=== PATIENT | female | born 1930 | race Caucasian/White ===

== ENCOUNTER 2020-02-20 08:14 | Emergency (ER) | payer MEDICARE, MEDICAID, SELFPAY ==
[~2020-02-20] VITALS: Ht 152.4 cm; Wt 55.3 kg
[2020-02-20 08:30] VITALS: BP_SYST 115
--- NOTE | 2020-02-20 08:30 | NUR ---
Patient to ER bed 7 to gown for evaluation. Side rails up.
--- NOTE | 2020-02-20 08:35 | NUR ---
Patient BIB BLS C/O Vaginal bleeding. Patient A&OX1, afebrile, skin pink & warm, armenian speakingdenies pain, bed bound, denies N/V/D. Patient sent by staff from [facility] for vaginal bleeding noted this morning at 0500, pt also Covid positive 02/11/20. Upon assessment PT noted to have brown discoloration in urine stained diaper. Patient responding to questions in armenian.
--- NOTE | 2020-02-20 08:42 | NUR ---
JULIAN DOMINIQUE at bedside examining patient.
[2020-02-20] MEDS ORDERED: NACL 0.9% 1,000 ML IV ONE (09:15)
[2020-02-20 09:43] LABS: BILIRUBIN,URINE 1+ (NEGATIVE); BLOOD, URINE 3+ (NEGATIVE); CLARITY/URINE CLEAR (CLEAR); COLOR,URINE YELLOW (YELLOW); GLUCOSE,URINE NEGATIVE (NEGATIVE); KETONES,URINE TRACE (NEGATIVE); LEUKOCYTE ESTERASE ,URINE 2+ (NEGATIVE); NITRITE, URINE POSITIVE (NEGATIVE); PH,URINE 8.5 (5.0-8.0); PROTEIN URINE 3+ (NEGATIVE)
[2020-02-20 09:47] LABS: BASOPHILS # (AUTO) 0.1 K/uL (0.0-0.2); BASOPHILS % (AUTO) 1.3 % (0.0-2.0); EOSINOPHILS # (AUTO) 0.3 K/uL (0.0-0.4); EOSINOPHILS % (AUTO) 5.2 % (0.0-4.0); HEMATOCRIT 38.5 % (36-48); HEMOGLOBIN 12.4 g/dL (12.0-16.0); LYMPHOCYTES # (AUTO) 1.3 K/uL (1.0-5.5); LYMPHOCYTES % (AUTO) 24.3 % (20.5-51.5); MEAN CORPUSCULAR HEMOGLOBIN 27 pg (27-31); MEAN CORPUSCULAR HGB CONC 32 % (32-36); MEAN CORPUSCULAR VOLUME 84 fL (79.0-98.0); MONOCYTES # (AUTO) 0.5 K/uL (0.0-1.0); MONOCYTES % (AUTO) 8.6 % (1.7-9.3); NEUTROPHILS # (AUTO) 3.3 K/uL (1.8-7.7); NEUTROPHILS % (AUTO) 60.6 % (40.0-70.0); PLATELET COUNT (AUTO) 315 K/uL (130-430); RED BLOOD CELL COUNT(AUTO) 4.57 MIL/uL (4.2-6.2); RED CELL DISTRIBUTION WIDTH 14.7 % (9.0-15.0); WHITE BLOOD COUNT (AUTO) 5.5 K/uL (4.8-10.8)
[2020-02-20 09:52] LABS: BACTERIA,URINE MODERATE /HPF (None Seen); RBC,URINE >100 /HPF (0-3); WBC,URINE >100 /HPF (0-3)
[2020-02-20 09:55] LABS: ANION GAP 10 (5-15); CALCIUM 8.9 mg/dL (8.4-11.0); CHLORIDE 109 mmol/L (98-107); CREATININE 0.76 mg/dL (0.55-1.30); GLUCOSE 116 mg/dL (70-99); POTASSIUM 3.6 mmol/L (3.5-5.1); SODIUM SERUM 145 mmol/L (136-145); UREA NITROGEN, BLOOD 22 mg/dL (8-21)
--- NOTE | 2020-02-20 09:55 | NUR ---
Patient given ensure from dietary
[2020-02-20 10:00] LABS: ALANINE AMINOTRANSFERASE 24 U/L (12-78); ALBUMIN 3.3 g/dL (3.4-4.8); ASPARTATE AMINOTRANSFERASE 21 U/L (10-37); TOTAL BILIRUBIN 0.6 mg/dL (0.0-1.0)
[2020-02-20] MEDS ORDERED: cefTRIAXone 1 GM IVPB PREMIX 50 ML IV ONE (10:00)
[2020-02-20 10:24] VITALS: BP_SYST 153
--- NOTE | 2020-02-20 11:00 | NUR ---
Patient to be transferred to [facility] . Is being DISCHARGE TO [facility] . Receiving facility has accepting physician and available space. Patient belongings will be sent with patient. Copy of DISCHARGE SUMMARY & Physicians Orders to be sent with patient. Report called to at receiving facility, [facility]. [][facility] has been called for transfer. ETA is 20 MIN[].
--- NOTE | 2020-02-20 11:28 | NUR ---
Patient given written and verbal discharge instructions and verbalizes understanding. ER MD discussed with patient the results and treatment provided. Patient in stable condition. ID arm band removed. IV catheter removed intact and dressing applied, no active bleeding. Rx of macrobidgiven. Patient educated on pain management and to follow up with PMD. Pain Scale . Opportunity for questions provided and answered. Medication side effect fact sheet provided.
== END 2020-02-20 11:29 | disposition home or self-care (01) ==
LOC: EEVIPCON 08:14 → SED 08:14
DX: N39.0 Urinary tract infection, site not specified (principal); Z20.828 Contact with and (suspected) exposure to other viral communicable diseases; I10 Essential (primary) hypertension; E03.9 Hypothyroidism, unspecified
CPT/HCPCS: 36415; 80053; 81000; 83605; 85025; 87040; 87086; 96365; 99284; J0696; J7030

== ENCOUNTER 2020-02-28 22:17 | Inpatient (IN) | payer OTHER, MEDICAID, SELFPAY ==
[~2020-02-28] VITALS: Ht 162.6 cm; Wt 55.8 kg
[2020-02-28 22:20] VITALS: BP_SYST 143
[2020-02-28] MEDS ORDERED: NACL 0.9% 1,000 ML IV ONE (23:52)
[2020-02-29 00:29] LABS: BASOPHILS # (AUTO) 0.1 K/uL (0.0-0.2); BASOPHILS % (AUTO) 0.7 % (0.0-2.0); EOSINOPHILS # (AUTO) 0.2 K/uL (0.0-0.4); EOSINOPHILS % (AUTO) 1.8 % (0.0-4.0); HEMATOCRIT 42.2 % (36-48); HEMOGLOBIN 13.3 g/dL (12.0-16.0); LYMPHOCYTES # (AUTO) 1.9 K/uL (1.0-5.5); LYMPHOCYTES % (AUTO) 17.1 % (20.5-51.5); MEAN CORPUSCULAR HEMOGLOBIN 27 pg (27-31); MEAN CORPUSCULAR HGB CONC 32 % (32-36); MEAN CORPUSCULAR VOLUME 86 fL (79.0-98.0); MONOCYTES # (AUTO) 1.2 K/uL (0.0-1.0); MONOCYTES % (AUTO) 10.8 % (1.7-9.3); NEUTROPHILS # (AUTO) 7.6 K/uL (1.8-7.7); NEUTROPHILS % (AUTO) 69.6 % (40.0-70.0); PLATELET COUNT (AUTO) 218 K/uL (130-430); RED BLOOD CELL COUNT(AUTO) 4.92 MIL/uL (4.2-6.2); RED CELL DISTRIBUTION WIDTH 15.2 % (9.0-15.0); WHITE BLOOD COUNT (AUTO) 10.9 K/uL (4.8-10.8)
[2020-02-29 00:31] LABS: ANION GAP 14 (5-15); CALCIUM 9.4 mg/dL (8.4-11.0); CREATININE 1.07 mg/dL (0.55-1.30); GLUCOSE 146 mg/dL (70-99); POTASSIUM 3.3 mmol/L (3.5-5.1); UREA NITROGEN, BLOOD 38 mg/dL (8-21)
[2020-02-29 00:33] LABS: INR 1.1 (0.8-1.2)
[2020-02-29 00:37] LABS: ALANINE AMINOTRANSFERASE 37 U/L (12-78); ALBUMIN 3.2 g/dL (3.4-4.8); ASPARTATE AMINOTRANSFERASE 25 U/L (10-37); TOTAL BILIRUBIN 0.4 mg/dL (0.0-1.0)
[2020-02-29 00:39] LABS: CHLORIDE 120 mmol/L (98-107); SODIUM SERUM 160 mmol/L (136-145)
[2020-02-29] MEDS ORDERED: NS 500 ML IV ONE (00:45)
[2020-02-29 01:01] LABS: BILIRUBIN,URINE 1+ (NEGATIVE); BLOOD, URINE 1+ (NEGATIVE); CLARITY/URINE CLEAR (CLEAR); COLOR,URINE YELLOW (YELLOW); GLUCOSE,URINE NEGATIVE (NEGATIVE); KETONES,URINE TRACE (NEGATIVE); LEUKOCYTE ESTERASE ,URINE TRACE (NEGATIVE); NITRITE, URINE NEGATIVE (NEGATIVE); PH,URINE 5.5 (5.0-8.0); PROTEIN URINE TRACE (NEGATIVE)
[2020-02-29 01:12] LABS: BACTERIA,URINE MODERATE /HPF (None Seen)
[2020-02-29] MEDS ORDERED: ASPI-1155 PO (02:35)
[2020-02-29] MEDS ORDERED: METO25TA6 PO (02:35)
[2020-02-29] MEDS ORDERED: ACET-2165 PO (02:35)
[2020-02-29] MEDS ORDERED: ACET-73 PO (02:35)
[2020-02-29] MEDS ORDERED: CALC-823 PO (02:35)
[2020-02-29] MEDS ORDERED: ASCO500T20 PO (02:35)
[2020-02-29] MEDS ORDERED: DOCU-144 PO (02:35)
[2020-02-29] MEDS ORDERED: ALEN10TA7 PO (02:35)
[2020-02-29] MEDS ORDERED: DONE10TA44 PO (02:35)
[2020-02-29] MEDS ORDERED: LEVO150T PO (02:39)
[2020-02-29] MEDS ORDERED: CARB-61 PO (02:39)
[2020-02-29] MEDS ORDERED: MULT-1117 PO (02:39)
[2020-02-29] MEDS ORDERED: CYAN250014 PO (02:39)
[2020-02-29] MEDS ORDERED: SENN8.6T19 PO (02:39)
[2020-02-29] MEDS ORDERED: MEMA10TA PO (02:39)
[2020-02-29] MEDS ORDERED: PRAV40TA PO (02:39)
[2020-02-29 03:43] VITALS: BP_SYST 124
[2020-02-29 04:05] VITALS: BP_SYST 124
[2020-02-29] MEDS ORDERED: POTASSIUM CHLORIDE 20 MEQ in NS 250 ML IV ONE (06:00)
[2020-02-29] MEDS ORDERED: DILTIAZEM HCL 25 MG/5 ML VIAL IVP ONE (06:00)
[2020-02-29] MEDS ORDERED: KCL 20 mEq in 100 mL (PREMIX) 100 ML IV ONE (06:09)
[2020-02-29] MEDS: D5W 1,000 ML IV SCH ×2 (06:14→15:15)
[2020-02-29] MEDS: LEVOTHYROXINE SODIUM 0.15 MG TABLET PO SCH (06:15)
[2020-02-29] MEDS ORDERED: cefTRIAXone 1 GM IVPB PREMIX 50 ML IV ONE (06:38)
[2020-02-29] MEDS: cefTRIAXone 1 GM IVPB PREMIX 50 ML IV SCH (07:02)
[2020-02-29] MEDS: AZITHROMYCIN 500 MG in NS 250 ML IV SCH (08:00)
[2020-02-29] MEDS: CARBIDOPA/LEVODOPA 25/100 MG TABLET PO SCH ×2 (08:43→22:18)
[2020-02-29] MEDS: MEMANTINE HCL 5 MG TABLET PO SCH ×2 (08:43→22:18)
[2020-02-29] MEDS: METOPROLOL TARTRATE 25 MG TABLET PO SCH ×2 (08:43→22:17)
[2020-02-29] MEDS: DOCUSATE SODIUM 100 MG CAPSULE PO SCH (08:43)
[2020-02-29] MEDS: ASCORBIC ACID 500 MG TABLET PO SCH (08:44)
[2020-02-29 09:04] VITALS: BP_SYST 136
[2020-02-29 10:55] LABS: BASOPHILS # (AUTO) 0.1 K/uL (0.0-0.2); BASOPHILS % (AUTO) 0.7 % (0.0-2.0); EOSINOPHILS # (AUTO) 0.4 K/uL (0.0-0.4); EOSINOPHILS % (AUTO) 3.7 % (0.0-4.0); HEMATOCRIT 35.7 % (36-48); HEMOGLOBIN 11.3 g/dL (12.0-16.0); LYMPHOCYTES % (AUTO) 19.3 % (20.5-51.5); MEAN CORPUSCULAR HEMOGLOBIN 27 pg (27-31); MEAN CORPUSCULAR HGB CONC 32 % (32-36); MEAN CORPUSCULAR VOLUME 86 fL (79.0-98.0); MONOCYTES # (AUTO) 0.9 K/uL (0.0-1.0); MONOCYTES % (AUTO) 9.3 % (1.7-9.3); NEUTROPHILS # (AUTO) 6.8 K/uL (1.8-7.7); PLATELET COUNT (AUTO) 176 K/uL (130-430); RED BLOOD CELL COUNT(AUTO) 4.16 MIL/uL (4.2-6.2); RED CELL DISTRIBUTION WIDTH 15.3 % (9.0-15.0); WHITE BLOOD COUNT (AUTO) 10.2 K/uL (4.8-10.8)
[2020-02-29 11:25] LABS: ALANINE AMINOTRANSFERASE 29 U/L (12-78); ALBUMIN 2.6 g/dL (3.4-4.8); ANION GAP 7 (5-15); ASPARTATE AMINOTRANSFERASE 20 U/L (10-37); CALCIUM 8.4 mg/dL (8.4-11.0); CREATININE 0.73 mg/dL (0.55-1.30); GLUCOSE 143 mg/dL (70-99); POTASSIUM 3.3 mmol/L (3.5-5.1); SODIUM SERUM 159 mmol/L (136-145); TOTAL BILIRUBIN 0.2 mg/dL (0.0-1.0); UREA NITROGEN, BLOOD 26 mg/dL (8-21)
[2020-02-29 11:28] LABS: CHLORIDE 125 mmol/L (98-107)
[2020-02-29 13:25] VITALS: BP_SYST 132
[2020-02-29] MEDS: ASPIRIN 81 MG TAB.CHEW PO SCH (17:18)
[2020-02-29 17:46] VITALS: BP_SYST 128
[2020-02-29 19:50] VITALS: BP_SYST 106
[2020-02-29] MEDS ORDERED: PRAVASTATIN SODIUM 20 MG TABLET (PRAVACHOL) PO SCH (21:00)
[2020-02-29] MEDS: ACETAMINOPHEN 325 MG TABLET PO PRN (22:15)
[2020-02-29] MEDS: DONEPEZIL HCL 5 MG TABLET (ARICEPT) PO SCH (22:16)
[2020-02-29] MEDS: ATORVASTATIN 10 MG TABLET PO SCH (22:16)
[2020-02-29] MEDS: SENNOSIDES 8.6 MG TABLET PO SCH (22:18)
[2020-03-01] VITALS: BP_SYST 127
[2020-03-01] MEDS: D5W 1,000 ML IV SCH ×3 (00:56→21:38)
[2020-03-01] MEDS: cefTRIAXone 1 GM IVPB PREMIX 50 ML IV SCH (06:31)
[2020-03-01] MEDS: LEVOTHYROXINE SODIUM 0.15 MG TABLET PO SCH (06:31)
[2020-03-01 07:33] LABS: BASOPHILS # (AUTO) 0.1 K/uL (0.0-0.2); BASOPHILS % (AUTO) 0.6 % (0.0-2.0); EOSINOPHILS # (AUTO) 0.9 K/uL (0.0-0.4); HEMATOCRIT 32.6 % (36-48); HEMOGLOBIN 10.4 g/dL (12.0-16.0); LYMPHOCYTES # (AUTO) 1.5 K/uL (1.0-5.5); LYMPHOCYTES % (AUTO) 18.7 % (20.5-51.5); MEAN CORPUSCULAR HEMOGLOBIN 27 pg (27-31); MEAN CORPUSCULAR HGB CONC 32 % (32-36); MEAN CORPUSCULAR VOLUME 85 fL (79.0-98.0); MONOCYTES # (AUTO) 0.5 K/uL (0.0-1.0); MONOCYTES % (AUTO) 6.8 % (1.7-9.3); NEUTROPHILS % (AUTO) 62.9 % (40.0-70.0); PLATELET COUNT (AUTO) 137 K/uL (130-430); RED BLOOD CELL COUNT(AUTO) 3.82 MIL/uL (4.2-6.2); RED CELL DISTRIBUTION WIDTH 15.4 % (9.0-15.0)
[2020-03-01 07:54] LABS: ALANINE AMINOTRANSFERASE 12 U/L (12-78); ALBUMIN 2.3 g/dL (3.4-4.8); ANION GAP 9 (5-15); ASPARTATE AMINOTRANSFERASE 23 U/L (10-37); CALCIUM 7.8 mg/dL (8.4-11.0); CHLORIDE 114 mmol/L (98-107); CREATININE 0.65 mg/dL (0.55-1.30); GLUCOSE 106 mg/dL (70-99); POTASSIUM 3.1 mmol/L (3.5-5.1); SODIUM SERUM 149 mmol/L (136-145); TOTAL BILIRUBIN 0.4 mg/dL (0.0-1.0); UREA NITROGEN, BLOOD 14 mg/dL (8-21)
[2020-03-01 08:00] VITALS: BP_SYST 99
[2020-03-01] MEDS: AZITHROMYCIN 500 MG in NS 250 ML IV SCH (09:00)
[2020-03-01 12:30] VITALS: BP_SYST 119
[2020-03-01] MEDS ORDERED: POTASSIUM CHLORIDE 20 MEQ TAB.PRT.SR PO ONE (13:00)
[2020-03-01] MEDS ORDERED: KCL 40 mEq in 100 mL (PREMIX) 100 ML IV ONE (13:15)
[2020-03-01] MEDS ORDERED: POTASSIUM CHLORIDE 40 MEQ in D5W 250 ML IV ONE (13:45)
[2020-03-01] MEDS: CARBIDOPA/LEVODOPA 25/100 MG TABLET PO SCH ×2 (16:00→21:38)
[2020-03-01] MEDS: METOPROLOL TARTRATE 25 MG TABLET PO SCH ×2 (16:00→22:14)
[2020-03-01] MEDS: MEMANTINE HCL 5 MG TABLET PO SCH ×2 (16:00→21:38)
[2020-03-01] MEDS: ASCORBIC ACID 500 MG TABLET PO SCH (16:00)
[2020-03-01] MEDS: DOCUSATE SODIUM 100 MG CAPSULE PO SCH (16:00)
[2020-03-01 16:15] VITALS: BP_SYST 121
[2020-03-01] MEDS: ASPIRIN 81 MG TAB.CHEW PO SCH (18:30)
[2020-03-01 19:45] VITALS: BP_SYST 113
[2020-03-01] MEDS: ACETAMINOPHEN 325 MG TABLET PO PRN (21:38)
[2020-03-01] MEDS: SENNOSIDES 8.6 MG TABLET PO SCH (21:38)
[2020-03-01] MEDS: DONEPEZIL HCL 5 MG TABLET (ARICEPT) PO SCH (21:38)
[2020-03-01] MEDS: ATORVASTATIN 10 MG TABLET PO SCH (21:38)
[2020-03-02] VITALS: BP_SYST 107
[2020-03-02 08:00] VITALS: BP_SYST 138
[2020-03-02] MEDS: LEVOTHYROXINE SODIUM 0.15 MG TABLET PO SCH (08:00)
[2020-03-02] MEDS: cefTRIAXone 1 GM IVPB PREMIX 50 ML IV SCH (08:00)
[2020-03-02] MEDS: METOPROLOL TARTRATE 25 MG TABLET PO SCH ×2 (09:00→21:00)
[2020-03-02] MEDS: ASCORBIC ACID 500 MG TABLET PO SCH (09:00)
[2020-03-02] MEDS: MEMANTINE HCL 5 MG TABLET PO SCH ×2 (09:00→21:00)
[2020-03-02] MEDS: CARBIDOPA/LEVODOPA 25/100 MG TABLET PO SCH ×2 (09:00→21:00)
[2020-03-02] MEDS: AZITHROMYCIN 500 MG in NS 250 ML IV SCH (09:00)
[2020-03-02 10:16] LABS: BASOPHILS % (AUTO) 0.4 % (0.0-2.0); EOSINOPHILS # (AUTO) 0.6 K/uL (0.0-0.4); EOSINOPHILS % (AUTO) 9.8 % (0.0-4.0); HEMATOCRIT 33.6 % (36-48); HEMOGLOBIN 10.8 g/dL (12.0-16.0); LYMPHOCYTES # (AUTO) 1.3 K/uL (1.0-5.5); LYMPHOCYTES % (AUTO) 21.3 % (20.5-51.5); MEAN CORPUSCULAR HEMOGLOBIN 27 pg (27-31); MEAN CORPUSCULAR HGB CONC 32 % (32-36); MEAN CORPUSCULAR VOLUME 84 fL (79.0-98.0); MONOCYTES # (AUTO) 0.3 K/uL (0.0-1.0); MONOCYTES % (AUTO) 5.6 % (1.7-9.3); NEUTROPHILS # (AUTO) 3.8 K/uL (1.8-7.7); NEUTROPHILS % (AUTO) 62.9 % (40.0-70.0); PLATELET COUNT (AUTO) 137 K/uL (130-430); RED CELL DISTRIBUTION WIDTH 14.9 % (9.0-15.0); WHITE BLOOD COUNT (AUTO) 6.1 K/uL (4.8-10.8)
[2020-03-02 10:33] LABS: ANION GAP 9 (5-15); C-REACTIVE PROTEIN QUANT 6.8 mg/dL (0-0.5); CALCIUM 7.6 mg/dL (8.4-11.0); CHLORIDE 102 mmol/L (98-107); CREATININE 0.49 mg/dL (0.55-1.30); GLUCOSE 117 mg/dL (70-99); PHOSPHORUS 1.9 mg/dL (2.7-4.5); POTASSIUM 3.4 mmol/L (3.5-5.1); SODIUM SERUM 133 mmol/L (136-145); UREA NITROGEN, BLOOD 6 mg/dL (8-21)
[2020-03-02 11:03] LABS: ERYTHROCYTE SEDIMENTATION RATE 30 MM/HR (0-20)
[2020-03-02] MEDS ORDERED: COMMUNICATION ORDER XX ONE (11:15)
[2020-03-02] MEDS ORDERED: DOCUSATE SODIUM 100 MG/10 ML UDC PO ONE (12:00)
[2020-03-02] MEDS ORDERED: K PHOS 15 MM in NS 250 ML IV ONE (14:00)
[2020-03-02 16:00] VITALS: BP_SYST 139
[2020-03-02] MEDS ORDERED: KCL 40 mEq in 100 mL (PREMIX) 0 ML IV ONE (18:29)
[2020-03-02] MEDS: ASPIRIN 81 MG TAB.CHEW PO SCH (18:36)
[2020-03-02] MEDS: NACL 0.9% 1,000 ML IV SCH (18:36)
[2020-03-02] MEDS ORDERED: KCL 20 mEq in 100 mL (PREMIX) 0 ML IV ONE (18:44)
[2020-03-02 19:50] VITALS: BP_SYST 129
[2020-03-02] MEDS: SENNOSIDES 8.6 MG TABLET PO SCH (21:00)
[2020-03-02] MEDS: DONEPEZIL HCL 5 MG TABLET (ARICEPT) PO SCH (21:00)
[2020-03-02] MEDS: ATORVASTATIN 10 MG TABLET PO SCH (21:00)
[2020-03-02] MEDS: ACETAMINOPHEN 325 MG TABLET PO PRN (21:00)
[2020-03-03] VITALS: BP_SYST 122
[2020-03-03] MEDS: LEVOTHYROXINE SODIUM 0.15 MG TABLET PO SCH (06:56)
[2020-03-03] MEDS: cefTRIAXone 1 GM IVPB PREMIX 50 ML IV SCH (06:56)
[2020-03-03 07:56] LABS: BASOPHILS # (AUTO) 0.1 K/uL (0.0-0.2); BASOPHILS % (AUTO) 1.3 % (0.0-2.0); EOSINOPHILS # (AUTO) 0.8 K/uL (0.0-0.4); HEMATOCRIT 30.1 % (36-48); HEMOGLOBIN 9.7 g/dL (12.0-16.0); LYMPHOCYTES % (AUTO) 30.7 % (20.5-51.5); MEAN CORPUSCULAR HEMOGLOBIN 27 pg (27-31); MEAN CORPUSCULAR HGB CONC 32 % (32-36); MEAN CORPUSCULAR VOLUME 84 fL (79.0-98.0); MONOCYTES # (AUTO) 0.6 K/uL (0.0-1.0); MONOCYTES % (AUTO) 8.8 % (1.7-9.3); NEUTROPHILS % (AUTO) 46.2 % (40.0-70.0); PLATELET COUNT (AUTO) 130 K/uL (130-430); RED BLOOD CELL COUNT(AUTO) 3.59 MIL/uL (4.2-6.2); RED CELL DISTRIBUTION WIDTH 14.9 % (9.0-15.0); WHITE BLOOD COUNT (AUTO) 6.4 K/uL (4.8-10.8)
[2020-03-03 08:00] VITALS: BP_SYST 126
[2020-03-03 08:19] LABS: ALANINE AMINOTRANSFERASE 12 U/L (12-78); ANION GAP 4 (5-15); ASPARTATE AMINOTRANSFERASE 19 U/L (10-37); CALCIUM 7.4 mg/dL (8.4-11.0); CHLORIDE 110 mmol/L (98-107); CREATININE 0.54 mg/dL (0.55-1.30); GLUCOSE 85 mg/dL (70-99); PHOSPHORUS 3.1 mg/dL (2.7-4.5); POTASSIUM 3.7 mmol/L (3.5-5.1); SODIUM SERUM 138 mmol/L (136-145); TOTAL BILIRUBIN 0.4 mg/dL (0.0-1.0); UREA NITROGEN, BLOOD 4 mg/dL (8-21)
[2020-03-03] MEDS: ASCORBIC ACID 500 MG TABLET PO SCH (08:26)
[2020-03-03] MEDS: CARBIDOPA/LEVODOPA 25/100 MG TABLET PO SCH ×2 (08:26→21:04)
[2020-03-03] MEDS: MEMANTINE HCL 5 MG TABLET PO SCH ×2 (08:26→21:04)
[2020-03-03] MEDS: DOCUSATE SODIUM 100 MG/10 ML UDC PO SCH (08:26)
[2020-03-03] MEDS: AZITHROMYCIN 500 MG in NS 250 ML IV SCH (08:26)
[2020-03-03] MEDS: METOPROLOL TARTRATE 25 MG TABLET PO SCH ×2 (09:16→21:00)
[2020-03-03 10:14] LABS: ERYTHROCYTE SEDIMENTATION RATE 28 MM/HR (0-20)
[2020-03-03 12:00] VITALS: BP_SYST 92
[2020-03-03] MEDS: NACL 0.9% 1,000 ML IV SCH (13:19)
[2020-03-03 16:00] VITALS: BP_SYST 130
[2020-03-03] MEDS: ASPIRIN 81 MG TAB.CHEW PO SCH (19:17)
[2020-03-03 21:00] VITALS: BP_SYST 135
[2020-03-03] MEDS: ATORVASTATIN 10 MG TABLET PO SCH (21:03)
[2020-03-03] MEDS: DONEPEZIL HCL 5 MG TABLET (ARICEPT) PO SCH (21:03)
[2020-03-03] MEDS: SENNOSIDES 8.6 MG TABLET PO SCH (21:04)
[2020-03-04 00:50] VITALS: BP_SYST 161
[2020-03-04] MEDS: cefTRIAXone 1 GM IVPB PREMIX 50 ML IV SCH (05:23)
[2020-03-04] MEDS: LEVOTHYROXINE SODIUM 0.15 MG TABLET PO SCH (05:27)
[2020-03-04 06:56] LABS: BASOPHILS % (AUTO) 0.7 % (0.0-2.0); EOSINOPHILS # (AUTO) 0.4 K/uL (0.0-0.4); EOSINOPHILS % (AUTO) 7.5 % (0.0-4.0); HEMATOCRIT 30.6 % (36-48); HEMOGLOBIN 9.9 g/dL (12.0-16.0); LYMPHOCYTES # (AUTO) 1.3 K/uL (1.0-5.5); MEAN CORPUSCULAR HEMOGLOBIN 27 pg (27-31); MEAN CORPUSCULAR HGB CONC 33 % (32-36); MEAN CORPUSCULAR VOLUME 83 fL (79.0-98.0); MONOCYTES # (AUTO) 0.5 K/uL (0.0-1.0); MONOCYTES % (AUTO) 9.3 % (1.7-9.3); NEUTROPHILS # (AUTO) 3.1 K/uL (1.8-7.7); NEUTROPHILS % (AUTO) 58.5 % (40.0-70.0); PLATELET COUNT (AUTO) 131 K/uL (130-430); RED BLOOD CELL COUNT(AUTO) 3.67 MIL/uL (4.2-6.2); WHITE BLOOD COUNT (AUTO) 5.2 K/uL (4.8-10.8)
[2020-03-04 07:35] LABS: ANION GAP 9 (5-15); CALCIUM 7.6 mg/dL (8.4-11.0); CHLORIDE 103 mmol/L (98-107); GLUCOSE 87 mg/dL (70-99); POTASSIUM 3.2 mmol/L (3.5-5.1); SODIUM SERUM 134 mmol/L (136-145)
[2020-03-04 07:36] LABS: C-REACTIVE PROTEIN QUANT 6.7 mg/dL (0-0.5); CREATININE 0.43 mg/dL (0.55-1.30); PHOSPHORUS 2.2 mg/dL (2.7-4.5); UREA NITROGEN, BLOOD 3 mg/dL (8-21)
[2020-03-04 08:00] VITALS: BP_SYST 106
[2020-03-04] MEDS: AZITHROMYCIN 500 MG in NS 250 ML IV SCH (08:00)
[2020-03-04 08:51] LABS: ERYTHROCYTE SEDIMENTATION RATE 44 MM/HR (0-20)
[2020-03-04] MEDS: DOCUSATE SODIUM 100 MG/10 ML UDC PO SCH (09:51)
[2020-03-04] MEDS: METOPROLOL TARTRATE 25 MG TABLET PO SCH ×2 (09:51→21:00)
[2020-03-04] MEDS: MEMANTINE HCL 5 MG TABLET PO SCH ×2 (09:51→21:00)
[2020-03-04] MEDS: CARBIDOPA/LEVODOPA 25/100 MG TABLET PO SCH ×2 (09:52→21:00)
[2020-03-04] MEDS: NACL 0.9% 1,000 ML IV SCH (09:52)
[2020-03-04] MEDS: ASCORBIC ACID 500 MG TABLET PO SCH (09:52)
[2020-03-04 12:00] VITALS: BP_SYST 99
[2020-03-04] MEDS: LEVOFLOXACIN 250 MG TABLET PO SCH (12:00)
[2020-03-04] MEDS ORDERED: POTASSIUM CHLORIDE 40 MEQ in NS 250 ML IV ONE (12:30)
[2020-03-04 16:00] VITALS: BP_SYST 150
[2020-03-04] MEDS: ASPIRIN 81 MG TAB.CHEW PO SCH (17:53)
[2020-03-04 19:15] VITALS: BP_SYST 137
[2020-03-04] MEDS: ATORVASTATIN 10 MG TABLET PO SCH (21:00)
[2020-03-04] MEDS: DONEPEZIL HCL 5 MG TABLET (ARICEPT) PO SCH (21:00)
[2020-03-04] MEDS: SENNOSIDES 8.6 MG TABLET PO SCH (21:00)
[2020-03-04] MEDS ORDERED: COMMUNICATION ORDER XX ONE (22:00)
[2020-03-04] MEDS ORDERED: DILTIAZEM HCL 125 MG in D5W 100 ML IV SCH (22:15)
[2020-03-04] MEDS ORDERED: DILTIAZEM HCL 125 MG/25 ML VIAL IV ONE (23:07)
[2020-03-05] VITALS: BP_SYST 132
[2020-03-05] MEDS: LEVOTHYROXINE SODIUM 0.15 MG TABLET PO SCH (07:00)
[2020-03-05 08:00] VITALS: BP_SYST 120
[2020-03-05] MEDS: MEMANTINE HCL 5 MG TABLET PO SCH ×2 (08:40→21:00)
[2020-03-05] MEDS: DOCUSATE SODIUM 100 MG/10 ML UDC PO SCH (08:40)
[2020-03-05] MEDS: METOPROLOL TARTRATE 25 MG TABLET PO SCH ×2 (08:40→21:00)
[2020-03-05] MEDS: ASCORBIC ACID 500 MG TABLET PO SCH (08:41)
[2020-03-05] MEDS: CARBIDOPA/LEVODOPA 25/100 MG TABLET PO SCH ×2 (08:41→21:00)
[2020-03-05] MEDS: NACL 0.9% 1,000 ML IV SCH (09:45)
[2020-03-05] MEDS ORDERED: POTASSIUM CHLORIDE 60 MEQ in NS 500 ML IV ONE (10:00)
[2020-03-05] MEDS ORDERED: INSULIN REGULAR, HUMAN 100 UNITS/ML, 10 ML VIAL (humuLIN R) SUBCUT PRN (10:00)
[2020-03-05] MEDS ORDERED: DEXTROSE 50% JECT 50 ML DISP.SYRIN IVP PRN (10:00)
[2020-03-05 11:09] LABS: ALANINE AMINOTRANSFERASE 18 U/L (12-78); ALBUMIN 2.4 g/dL (3.4-4.8); ANION GAP 11 (5-15); ASPARTATE AMINOTRANSFERASE 18 U/L (10-37); CALCIUM 7.7 mg/dL (8.4-11.0); CHLORIDE 102 mmol/L (98-107); CREATININE 0.47 mg/dL (0.55-1.30); GLUCOSE 76 mg/dL (70-99); PHOSPHORUS 2.3 mg/dL (2.7-4.5); POTASSIUM 3.7 mmol/L (3.5-5.1); SODIUM SERUM 133 mmol/L (136-145); TOTAL BILIRUBIN 0.4 mg/dL (0.0-1.0); TRIGLYCERIDES 89 mg/dL (30-150); UREA NITROGEN, BLOOD 4 mg/dL (8-21)
[2020-03-05 11:46] VITALS: BP_SYST 132
[2020-03-05 12:00] VITALS: BP_SYST 135
[2020-03-05] MEDS: LEVOFLOXACIN 250 MG TABLET PO SCH (12:00)
[2020-03-05 16:00] VITALS: BP_SYST 132
[2020-03-05 20:00] VITALS: BP_SYST 132
[2020-03-05] MEDS: SENNOSIDES 8.6 MG TABLET PO SCH (21:00)
[2020-03-05] MEDS ORDERED: NA PHOS IV SCH ×9 (21:00)
[2020-03-05] MEDS ORDERED: SODIUM ACETATE IV SCH ×9 (21:00)
[2020-03-05] MEDS: ATORVASTATIN 10 MG TABLET PO SCH (21:00)
[2020-03-05] MEDS: DONEPEZIL HCL 5 MG TABLET (ARICEPT) PO SCH (21:00)
[2020-03-05] MEDS ORDERED: *TPN PER PHARMACY XX PRN (21:00)
[2020-03-05] MEDS ORDERED: [UNRECOGNIZED DRUG - OTHER] IV SCH ×9 (21:00)
[2020-03-05] MEDS ORDERED: TPN PERIPHERAL IV SCH ×9 (21:00)
[2020-03-05] MEDS ORDERED: FAT EMULSIONS 250 ML IV SCH (21:00)
[2020-03-05] MEDS ORDERED: DILTIAZEM HCL 125 MG/25 ML VIAL IV ONE (23:06)
[2020-03-06] VITALS: BP_SYST 122
[2020-03-06] MEDS: NACL 0.9% 1,000 ML IV SCH (01:09)
[2020-03-06] MEDS: LEVOTHYROXINE SODIUM 0.15 MG TABLET PO SCH (06:57)
[2020-03-06 07:48] LABS: ALANINE AMINOTRANSFERASE 18 U/L (12-78); ALBUMIN 2.2 g/dL (3.4-4.8); ANION GAP 11 (5-15); ASPARTATE AMINOTRANSFERASE 21 U/L (10-37); CALCIUM 7.8 mg/dL (8.4-11.0); CHLORIDE 105 mmol/L (98-107); CREATININE 0.48 mg/dL (0.55-1.30); GLUCOSE 55 mg/dL (70-99); PHOSPHORUS 2.1 mg/dL (2.7-4.5); POTASSIUM 4.2 mmol/L (3.5-5.1); SODIUM SERUM 136 mmol/L (136-145); TOTAL BILIRUBIN 0.4 mg/dL (0.0-1.0); UREA NITROGEN, BLOOD 4 mg/dL (8-21)
[2020-03-06 08:00] VITALS: BP_SYST 100
[2020-03-06] MEDS: DOCUSATE SODIUM 100 MG/10 ML UDC PO SCH (09:00)
[2020-03-06] MEDS: MEMANTINE HCL 5 MG TABLET PO SCH (09:00)
[2020-03-06] MEDS: ASCORBIC ACID 500 MG TABLET PO SCH (09:00)
[2020-03-06] MEDS: CARBIDOPA/LEVODOPA 25/100 MG TABLET PO SCH (09:00)
[2020-03-06] MEDS: METOPROLOL TARTRATE 25 MG TABLET PO SCH (09:00)
[2020-03-06] MEDS: LEVOFLOXACIN 250 MG TABLET PO SCH (12:00)
[2020-03-06 12:36] VITALS: BP_SYST 113
[2020-03-06 16:15] VITALS: BP_SYST 111
[2020-03-06 17:13] VITALS: BP_SYST 98
[2020-03-06] MEDS: ASPIRIN 81 MG TAB.CHEW PO SCH (18:00)
== END 2020-03-06 18:15 | disposition hospice, inpatient (51) | DRG 871 ==
LOC: SED 22:17 → EEVIPCON 02-29 02:16 → STU 02-29 02:16
PROVIDERS: ADMIT Internal Medicine Hospice and Palliative Medicine; ATTEND Internal Medicine Hospice and Palliative Medicine
DX: A41.89 Other specified sepsis (principal); U07.1 COVID-19; E87.0 Hyperosmolality and hypernatremia; D64.9 Anemia, unspecified; E03.9 Hypothyroidism, unspecified; E87.6 Hypokalemia; E87.8 Other disorders of electrolyte and fluid balance, not elsewhere classified; E83.51 Hypocalcemia; R73.9 Hyperglycemia, unspecified; E83.39 Other disorders of phosphorus metabolism; E88.09 Other disorders of plasma-protein metabolism, not elsewhere classified; F02.80 Dementia in other diseases classified elsewhere, unspecified severity, without behavioral disturbance, psychotic disturbance, mood disturbance, and anxiety; G30.9 Alzheimer's disease, unspecified; G20 Parkinson's disease; I10 Essential (primary) hypertension; Z79.82 Long term (current) use of aspirin; Z79.899 Other long term (current) drug therapy
CPT/HCPCS: 36415; 36600; 70450-TC; 71045; 74018; 80048; 80053; 81000-TC; 82803-TC; 83605; 83735-TC; 83880; 84100-TC; 84478-TC; 84484; 85025; 85610-TC; 85651-TC; 85730-TC; 86140; 87040-TC; 87081; 87086; 92610-GN; 93005; 96360; 99285; G0378; J0456; J0610; J0696; J3475; J3480; J3490; J7030; J7040; J7042; J7050; J7060